=== PATIENT | male | born 1970 | race Asian ===

== ENCOUNTER 2017-08-16 08:45 | Day surgery (SDC) | payer OTHER ==
[2017-08-13 10:08] VITALS: BMI 24.0
[2017-08-16] MEDS ORDERED: PROPOFOL 20 ML ONE ×2 (09:21)
[2017-08-16] MEDS ORDERED: LIDOCAINE HCL/PF 2% SDV 5ML VIAL ONE (09:21)
[2017-08-16 10:19] VITALS: TEMP 98
[2017-08-16 11:09] VITALS: BP 124/74; PULSE 56
== END 2017-08-16 11:41 | disposition home or self-care (01) ==
LOC: JASU-ENDO 08:45
PROVIDERS: ATTEND Internal Medicine Gastroenterology
PROC: 0DJD8ZZ Inspection of Lower Intestinal Tract, Via Natural or Artificial Opening Endoscopic (ICD-10-PCS; principal; 2017-08-16 09:30)
DX: Z12.11 Encounter for screening for malignant neoplasm of colon (principal); Z80.0 Family history of malignant neoplasm of digestive organs; K57.30 Diverticulosis of large intestine without perforation or abscess without bleeding; K64.8 Other hemorrhoids

== ENCOUNTER 2018-09-29 16:29 | Emergency (ER) | payer OTHER ==
--- NOTE | 2018-09-29 17:14 | PDOC ---
History of Present Illness - General Chief Complaint: Rash Stated Complaint: RASH Time Seen by Provider: 09/29/18 16:44 History Source: Patient - History of Present Illness Initial Comments: 09/29/18 17:14 The patient is a 47 year old male with no reported significant PMH who presents with a rash. Rash started Wednesday evening on his back and spread to his chest and abdomen. H/o recent evaluation for poison arcelia with 5 day course of Predisone taper 47 year old male with rash. 09/29/18 18:39 Past History - Past Medical History Allergies/Adverse Reactions: Allergies Allergy/AdvReac Type Severity Reaction Status Date / Time No Known Allergies Allergy Verified 08/18/18 09:02 Home Medications: Ambulatory Orders Hydrocortisone 2.5% Topical Cr [Anusol-Hc -] 1 applic RC BID #1 tube 09/29/18 Rosuvastatin Calcium [Crestor] 2.5 mg PO DAILY 09/29/18 hydrOXYzine HCL [Atarax -] 10 mg PO TID #21 tablet 09/29/18 Hypercholesterolemia: Yes - Suicide/Smoking/Psychosocial Hx Smoking History: Never smoked Have you smoked in the past 12 months: No Hx Alcohol Use: Yes Drug/Substance Use Hx: No Substance Use Type: None *DC/Admit/Observation/Transfer Diagnosis at time of Disposition: Rash - Discharge Dispostion Disposition: HOME Condition at time of disposition: Good Decision to Admit order: No - Referrals Referrals: Linda Barger MD [Staff Physician] - - Patient Instructions Printed Discharge Instructions: DI for Hives Additional Instructions: We have sent a prescription to your pharmacy. Please take the medications as directed. Follow-up with a chief technician and your primary care doctor should your rash persist. Return to the Emergency Department for any new/worsening/concerning symptoms. - Post Discharge Activity Forms/Work/School Notes: Back to Work
[2018-09-29] MEDS ORDERED: LORATADINE 10 MG TABLET PO ONE (17:17)
[2018-09-29 17:34] VITALS: BP 140/90; PULSE 83; TEMP 98.2; BMI 23.7
[2018-09-29] MEDS ORDERED: FAMOTIDINE 20 MG/50 ML IVPB 20 MG/50 ML MG IVPB ONE ×2 (17:38→18:10)
[2018-09-29] MEDS ORDERED: methylPREDNISolone NA SUCC 125 MG/2 ML VIAL IVPUSH ONE (17:39)
--- NOTE | 2018-09-29 17:46 | PDOC ---
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 rash is pruritic. did change detergent 4 weeks ago. no other new medications. has been doing topical benadryl. no n/v no fever. no travel. today itching is unbearable. - Physicial Exam PE: 09/29/18 17:44 awake alert lungs clear bilat heart rrr no mrg skin rash urticarial wheels wtih patches over trunk and abdomen, spares face and arms, bilat legs. posion arcelia rash on arms healing. no lip or tongue swelling. no ulceration in his mouth. - Medical Decision Making 09/29/18 17:45 pt with allergic reaction possible systemic from poison arcelia, however khushbu due to detergent as only involving clothing distribution. will restart iv steroids, benadryl. zyrtec or claritin. pepcid. will khushbu del angel with dermatology followup.
[2018-09-29] MEDS ORDERED: methylPREDNISolone NA SUCC 125 MG/2 ML VIAL ONE (18:10)
== END 2018-09-29 19:22 | disposition home or self-care (01) ==
LOC: FER 16:29
PROC: 3E033GC Introduction of Other Therapeutic Substance into Peripheral Vein, Percutaneous Approach (ICD-10-PCS; principal; 2018-09-29)
DX: R21 Rash and other nonspecific skin eruption (principal); E78.00 Pure hypercholesterolemia, unspecified
CPT/HCPCS: 99281-25

== ENCOUNTER 2020-04-22 11:33 | Emergency (ER) | payer OTHER ==
[2020-04-22 11:39] VITALS: BMI 24.0
[2020-04-22] MEDS ORDERED: SODIUM CHLORIDE 1,000 ML IV STA (12:15)
[2020-04-22 12:47] LABS: BASO % 0.7 % (0-2.0); EOS % 0.9 % (0-4.5); HEMATOCRIT 41.6 % (35.4-49); HEMOGLOBIN 14.2 GM/dL (11.7-16.9); LYMPH % 28.6 % (8-40); MCH 28.5 pg (25.7-33.7); MEAN CELL VOLUME 83.6 fl (80-96); MEAN PLT VOLUME 6.5 fl (7.5-11.1); MONO % 13.4 % (3.8-10.2); NEUT % 56.4 % (42.8-82.8); PLATELET COUNT 773 K/MM3 (134-434); RBC 4.97 M/mm3 (4.00-5.60); WHITE BLOOD COUNT 6.9 K/mm3 (4.0-10.0)
[2020-04-22 13:17] LABS: LDH 237 U/L (87-246)
[2020-04-22 13:56] VITALS: BP 145/68; PULSE 92; TEMP 98
== END 2020-04-22 13:57 | disposition home or self-care (01) ==
LOC: JER 11:33
PROC: 3E0337Z Introduction of Electrolytic and Water Balance Substance into Peripheral Vein, Percutaneous Approach (ICD-10-PCS; principal; 2020-04-22)
DX: R00.0 Tachycardia, unspecified (principal)
CPT/HCPCS: 36415; 71046-TC-FY; 82550; 83615; 84484; 85025; 85379; 85384; 86140; 93005; 93010; 99285-25